=== PATIENT | male | born 1965 | race Caucasian/White ===

== ENCOUNTER 2023-10-01 07:09 | Day surgery (SDC) | payer OTHER, SELFPAY ==
[2023-09-16 10:20] VITALS: BMI 37.7
[2023-09-16 10:27] LABS: % Basophils 0.4 % (0-2); % Eosinophils 0.5 % (0-6); % Immature Granulocytes 0.2 % (0-0.5); % Lymphocytes 24.8 % (20.5-51.1); % Monocytes 7.8 % (1.7-9.3); % Neutrophils 66.3 % (42.2-75.2); Absolute Basophils 0.1 10^3/uL (0-0.2); Absolute Eosinophils 0.1 10^3/uL (0-0.7); Absolute Lymphocytes 3.2 10^3/uL (1.2-3.4); Absolute Neutrophils 8.5 10^3/uL (1.4-6.5); Hematocrit 45.9 % (39.0-52.0); Hemoglobin 16.2 g/dL (13.0-18.0); Mean Corp Hgb Conc. 35.3 g/dL (33.0-37.0); Mean Corpuscular Hgb 32.5 pg (27.0-31.0); Mean Platelet Volume 9.7 fL (7.4-10.4); Nucleated Red Blood Cells % 0 % (-); Platelet Count 190 10^3/uL (130-400); Red Blood Cell Count 4.99 10^6/uL (4.70-6.10); Red Cell Dist. Width 13.6 % (11.5-14.5); White Blood Cell Count 12.9 10^3/uL (4.8-10.8)
[2023-09-16 10:44] LABS: ALT (SGPT) 26 U/L (0-50); AST (SGOT) 23 U/L (17-59); Albumin 4.6 g/dl (3.5-5.0); Alkaline Phosphatase 58 U/L (38-126); Blood Urea Nitrogen 18 mg/dl (9-20); Calcium 9.4 mg/dl (8.4-10.2); Carbon Dioxide 28 mmol/L (22-30); Chloride 104 mmol/L (98-107); Estimated Creatinine Clearance > 125 ml/min; Glucose 103 mg/dl (70-99); Potassium 4.4 mmol/L (3.5-5.1); Sodium 138 mmol/L (135-145); Total Bilirubin 0.8 mg/dl (0.2-1.3); Total Protein 7.1 g/dl (6.3-8.2); eGFR > 60.00
[2023-10-01] VITALS (12 sets, daily range): BP systolic 79–155; BP diastolic 58–90
[2023-10-01] MEDS: LOW STRENGTH ASPIRIN 81 MG PO (08:00)
[2023-10-01 08:45] LABS: ACT-LR - POC 274 Seconds (116-155)
[2023-10-01 09:07] LABS: ACT-LR - POC 226 Seconds (116-155)
[2023-10-01] MEDS: NSS 1000 IV (09:24)
--- NOTE | 2023-10-01 10:56 | ITS.CL.CATH ---
Planning Lead - Catheterization
Cardiac Catheterization
Procedure Report:
CARDIAC CATHETERIZATION REPORT
Date of Procedure: 10/01/2023
Referring: Eddie Lynne MD
Indication: Mildly abnormal stress test with mild exertional dyspnea
HEMODYNAMIC DATA
AO: 156/88
LV: 156/17
LEFT VENTRICULOGRAPHY: Normal segmental wall motion with EF 62%
CORONARY ANGIOGRAPHY
Dominance: Right
Left Main: Normal
LAD: Focal 60-70% proximal LAD stenosis with 60% mid LAD stenosis distal to the takeoff of the very large bifurcating D1. The remainder of the LAD system has minimal luminal disease
Circumflex: There is a medium sized ramus intermedius with 30% proximal stenosis. The circumflex gives rise to a small high rising OM1, a large OM 2, and terminates with a medium sized bifurcating OM 3. There are tandem 70% and 50% lesions in the
circumflex just proximal to the bifurcating terminal OM 3.
RCA: Large dominant diffusely ectatic vessel with 60% proximal stenosis and otherwise mild luminal irregularities
FloWire assessment: At the conclusion of the diagnostic study, we proceeded with FloWire assessment of the RCA, circumflex, and LAD disease. Heparin was used for anticoagulation. A 6 Nigerian JR4 guide was used for the right coronary artery and a 6
[place]ian EBU 3.75 guide used for the left coronary artery. The RCA was evaluated first. Then we advanced the flow wire into the OM 3 to evaluate the distal circumflex disease. Finally, the flow wire was advanced into the distal LAD to evaluate the
LAD disease. Results include the following:
RCA: iFR-1.0, 0.99, and 0.99. These are all consistent with nonflow-limiting disease
Left circumflex: iFR 0.95, 0.95, 0.95. These are all consistent with nonflow-limiting disease.
LAD: iFR 0.95, 0.95, 0.95. The wire was withdrawn back to the guide showing a value of 1.0 at the guide consistent with appropriate normalization. We then readvanced the wire into the large D1. iFR there was 1.0. This proves the proximal LAD
60-70% stenosis is not at all flow-limiting.
Closure Device: None-the procedure was performed via the right radial artery. The Dao's test was normal prior to the procedure.
Radiation (mGy): 600
DAP (cm2.Gy): 41.1
Fluoroscopy time: 7.8 minutes
CONCLUSIONS
1: Systemic hypertension
2: Normal left ventricular function with EF 62%
3. Triple-vessel CAD as described. Quite surprisingly, the RCA, circumflex, and LAD disease are nonflow limiting.
4. Recommend very aggressive risk factor modification efforts. I explained to Manuel and his that continued smoking will result in premature almost certainly due to cardiovascular disease. His resting heart rate is in the low 50s and we
therefore will not add beta-piyush to his current regimen. We will give him sublingual nitroglycerin in case he ever develops anginal symptoms.
Copy to: Eddie Lynne MD, David Gaffney MD
Jaziel Verduzco MD, [facility], [facility]
== END 2023-10-01 12:34 | disposition home or self-care (01) ==
LOC: CATH 07:09
PROVIDERS: ATTENDING PHYSICIAN Internal Medicine Cardiovascular Disease; FAMILY PHYSICIAN Internal Medicine; OTHER PHYSICIAN Internal Medicine Cardiovascular Disease
DX: I25.10 Atherosclerotic heart disease of native coronary artery without angina pectoris (principal); I10 Essential (primary) hypertension; F17.210 Nicotine dependence, cigarettes, uncomplicated; R94.39 Abnormal result of other cardiovascular function study; R06.00 Dyspnea, unspecified; E78.5 Hyperlipidemia, unspecified; I45.10 Unspecified right bundle-branch block; J43.9 Emphysema, unspecified; R91.1 Solitary pulmonary nodule; K21.9 Gastro-esophageal reflux disease without esophagitis; Z86.010 Personal history of colon polyps; K57.90 Diverticulosis of intestine, part unspecified, without perforation or abscess without bleeding; K76.0 Fatty (change of) liver, not elsewhere classified; M54.30 Sciatica, unspecified side; E66.9 Obesity, unspecified; Z68.37 Body mass index [BMI] 37.0-37.9, adult; D72.829 Elevated white blood cell count, unspecified; Z79.82 Long term (current) use of aspirin
CPT/HCPCS: 36415; 80053; 85025; 93005; 93458; 93571; 93572; C1769; C1894; Q9967

== ENCOUNTER 2024-05-18 10:49 | Emergency (ER) | payer OTHER, SELFPAY ==
[2024-05-18] VITALS (9 sets, daily range): BP systolic 118–169; BP diastolic 67–96; PULSE 52–68; BMI 35.4
--- NOTE | 2024-05-18 11:43 | ED.GENMED ---
History of Present Illness
General
Chief Complaint: Fainting/Passed Out
Source: patient and spouse
Exam Limitations: none
Time Seen by Provider: 05/18/24 11:22
Nursing documentation reviewed up to this point in time: agreed with
History of Present Illness
History of Present Illness:
58-year-old male with history of HTN, HLD, cholecystectomy presents stating after going out to dinner last night, at 8 PM, he got out of the car, stood and felt like he was going to faint, dropped to his knees then fell over onto the ground with a
'few seconds' loss of consciousness. He denies any injury from the fall. He is not anticoagulated. He sat there and his gave him some water he got up and walked into the house. His blood pressure at that time was 90 systolic when he usually
has normal to high blood pressure. He denies headache or any pain prior to the fall. He denies nausea or vomiting.
This morning at 8:30 AM he noted blood in the toilet and on the toilet paper after wiping. He denies feeling lightheaded or dizzy now. He denies chest pain or trouble breathing. He denies abdominal pain.
Past History
Past History
ED Past Medical History: HTN and Hypercholesterolemia
ED Past Surgical History: Cholecystectomy
Social History
Tobacco: Non-smoker
Alcohol: Occasional
Personal:
Living: with family
Employment: Employed
Review of Systems
Review of Systems
Allergies reviewed?: Yes
All Other Systems: ROS reviewed and negative except as documented in HPI and ROS
Constitutional: Denies fever or fatigue
Respiratory: Denies trouble breathing
Cardiac: Reports syncope; Denies chest pain, diaphoresis or palpitations
ABD/GI: Reports bloody stools; Denies abdominal pain, nausea, vomiting, diarrhea or anorexia
: Denies dysuria, frequency or difficulty voiding
Musculoskeletal: Reports no symptoms
Skin: Reports no symptoms
Neurological: Reports no symptoms
Phy Exam
Physical Exam
Physical Exam:
GENERAL: No acute distress. A&Ox3.
CONSTITUTIONAL: Afebrile.
EYES: clear, conjunctivae normal
ENMT: moist mucus membranes, Pharynx nl
RESPIRATORY: Regular respirations, nonlabored, lungs clear.
CARDIOVASCULAR: Regular rate and rhythm, no murmurs, no rubs.
GI: Soft, rotund,nontender, normal BS
Rectal: pink mucus, heme positive
MUSCULOSKELETAL: Moves with ease. Well perfused.
SKIN: Warm, dry, pink
PSYCH: Normal mood and affect. Well kept, interactive and appropriate
NEUROLOGIC: Awake, alert and oriented. No focal neurological deficits
Course
Orders/Labs/Results
Orders:
Orders
05/18/24 10:52
ECG [Electrocardiogram (*1)] Urgent
Reason for Study: Syncope
EKG- Treatment ONCE
05/18/24 11:23
IV Insert/Care/Rem.- Treatment PRN
05/18/24 11:40
Orthostatic VS- Treatment ONCE
05/18/24 12:08
ABO2 Urgent
Before the Call Wristband Number:
Associate notified that ABO2 has been ordered: [id number]
Date: 05/18/24
Time: 12:51
Tufting Machine Fixer ID: [id number]
Basic Metabolic Panel Urgent
Complete Blood Count/With Diff Urgent
Lipase Urgent
05/18/24 13:08
Type+Screen Urgent
PalindromXK Wristband Number:
CMP [Comprehensive Metabolic Panel] Urgent
Protime/PTT Urgent
Is patient on Coumadin/Warfarin: Unknown
Comment: PREVIOUS CLOTTED
05/18/24 13:32
CT Abd/Pel (IV only)-DH only Urgent
Comment:
Reason For Exam: syncope, bloody stool
05/18/24 13:56
Hydrocortisone Sod Succinate [Solu-Cortef] 200 mg IV NOW STA
05/18/24 13:57
Diphenhydramine [Benadryl] 50 mg IV NOW STA
Abnormal Lab Results
05/18/24
12:08
WBC 11.3 H 10^3/uL
(4.8-10.8)
MCH 31.4 H pg
(27.0-31.0)
Plt Count 117 L 10^3/uL
(130-400)
MPV 11.4 H fL
(7.4-10.4)
Absolute Neuts (auto) 6.9 H 10^3/uL
(1.4-6.5)
Absolute Monos (auto) 1.0 H 10^3/uL
(0.1-0.6)
05/18/24 12:08
05/18/24 13:08
Vital Signs
Initial and Last Documented VS:
Initial Vital Signs
Temp Pulse Resp BP Pulse Ox
98.0 F 60 16 169/96 98
05/18/24 11:12 05/18/24 11:12 05/18/24 11:12 05/18/24 11:12 05/18/24 11:12
Last Documented Vital Signs
Temp Pulse Resp BP Pulse Ox
98.0 F 50 20 147/86 98
05/18/24 11:12 05/18/24 15:15 05/18/24 15:15 05/18/24 16:26 05/18/24 16:26
MDM/Problems Addressed
Differential Diagnosis Includes:
GI bleed, hemorrhoid, fissure, bleeding diverticula, diverticulitis, colitis, vasovagal episode
MDM/Problems Addressed:
58-year-old male with history of HTN, HLD, cholecystectomy, not anticoagulated, presents stating after going out to dinner last night, at 8 PM, he got out of the car, stood and felt like he was going to faint, dropped to his knees then fell over
onto the ground with a 'few seconds' loss of consciousness. He denies any injury from the fall. He is not anticoagulated. He sat there and his gave him some water he got up and walked into the house. His blood pressure at that time was 90
systolic when he usually has normal to high blood pressure. He denies headache or any pain prior to the fall. He denies nausea or vomiting.
This morning at 8:30 AM he noted blood in the toilet and on the toilet paper after wiping. He denies feeling lightheaded or dizzy now. He denies chest pain or trouble breathing. He denies abdominal pain.
Afebrile, NAD.
EKG Sinus bradycardia rate 54, no change
BP 141/71 by this examiner.
1:00 PM:
CBC, no clinically significant abnormality
CMP:normal
Lipase normal
4:00 p.m.
No further rectal bleeding
Pt feels well
Orthostatics negative
Plan: Discharge, return instructions reviewed.
He is comfortable going home.
CT abd/pelvis w IV contrast: Radiology report read: IMPRESSION:
1. Moderate sigmoid diverticulosis, without evidence of diverticulitis. No definite contrast extravasation to suggest active arterial hemorrhage at the time of imaging.
2. Small lung nodules at each lung base, likely benign. As per Fleischner Society recommendations, no further CT follow-up is required unless the patient is high risk for lung carcinoma, in which case a follow-up chest CT should be considered in
approximately 12 months.
Results reviewed with patient. Copy of CT report given.
Pt remains stable, no further bleeding, labs normal, VSS
Most likely vasovagal episode
Return instruction discussed.
05/19/24
F/U call to pt: States he is feeling well, no further bleeding, no further fainting episodes and his blood pressure is slightly higher than normal with is his baseline. He states he has f/u appt wit his PCP.
*EKG
EKG Intrepretation Date: 05/18/24
Interpretation: abnormal
Comparison EKG: no changes
Heart Rate: 54
Rate: bradycardiac
Rhythm: sinus
[place]: normal axis
Interval: normal interval
QRS Pattern: normal QRS
Ischemia: no ischemia
*Critical Care Note
Total Time (30-74mins, 75-104mins- exclusive of procedures): Not Applicable
ED Attending Note
-
Portions of this chart may have been created with voice recognition software.� Occasional wrong word or��sound alike� substitutions may have occurred due to the inherent limitations of voice recognition software.
Discharge Plan
Departure
Patient Disposition: Home (Routine Discharge)
Date of Disposition: 05/18/24
Time of Disposition: 16:24
Patient with high blood pressure during this ER visit?: No
Condition: Good
Discharge Problem:
History of rectal bleeding, Episode of syncope
Instructions: Syncope (Fainting) (DC), Bloody Stools, Adult ED
Prescriptions:
No Action
amlodipine 5 mg Tablet
5 mg PO QPM
aspirin 81 mg Tablet,Delayed Release (Dr/Ec)
81 mg PO QPM
pantoprazole [Protonix] 40 mg Tablet,Delayed Release (Dr/Ec)
40 mg PO DAILY
valsartan 320 mg Tablet
320 mg PO DAILY
rosuvastatin [Crestor] 20 mg Tablet
20 mg PO DAILY
Referrals:
David Gaffney MD [Family Provider] - Call in 1-3 days for appt
Activity Restrictions/Additional Instructions:
As we discussed, your workup here today shows nothing worrisome.
Return here immediately if you have another fainting episode, you have increasing rectal bleeding, abdominal pain or feeling sicker in any way
Call your primary doctor make an appointment for a recheck sometime within the next week.
Interventions
Interventions:
*Risk Screen - Suicide Last Done: 05/18/24 11:12
*General Assessment Last Done: 05/18/24 11:53
*Neglect/Abuse Screening Last Done: 05/18/24 11:12
ED- Fall Risk Assessment Last Done: 05/18/24 11:53
*ED COVID-19 Vaccine History Last Done: 05/18/24 11:53
*Nursing Disposition Last Done: 05/18/24 16:47
ED- Cardiac Assessment Last Done: 05/18/24 11:53
ED- Neurological Assessment Last Done: 05/18/24 11:53
Discharge Date and Time
Discharge Date/Time: 05/18/24 16:47
Print Language: Nicaraguan
[2024-05-18 12:59] LABS: Blood Urea Nitrogen 16 mg/dl (9-20); Calcium 9.5 mg/dl (8.4-10.2); Carbon Dioxide 25 mmol/L (22-30); Chloride 103 mmol/L (98-107); Estimated Creatinine Clearance > 125 ml/min; Glucose 92 mg/dl (70-99); Lipase 32 U/L (23-300); Sodium 139 mmol/L (135-145); eGFR > 60.00
[2024-05-18 13:24] LABS: % Basophils 0.3 % (0-2); % Eosinophils 0.6 % (0-6); % Immature Granulocytes 0.3 % (0-0.5); % Lymphocytes 28.8 % (20.5-51.1); % Monocytes 8.8 % (1.7-9.3); % Neutrophils 61.2 % (42.2-75.2); Absolute Eosinophils 0.1 10^3/uL (0-0.7); Absolute Lymphocytes 3.3 10^3/uL (1.2-3.4); Absolute Neutrophils 6.9 10^3/uL (1.4-6.5); Hematocrit 44.7 % (39.0-52.0); Hemoglobin 15.5 g/dL (13.0-18.0); Mean Corp Hgb Conc. 34.7 g/dL (33.0-37.0); Mean Corpuscular Hgb 31.4 pg (27.0-31.0); Mean Corpuscular Volume 90.7 fL (80.0-94.0); Mean Platelet Volume 11.4 fL (7.4-10.4); Nucleated Red Blood Cells % 0 % (-); Platelet Count 117 10^3/uL (130-400); Red Blood Cell Count 4.93 10^6/uL (4.70-6.10); Red Cell Dist. Width 13.3 % (11.5-14.5); White Blood Cell Count 11.3 10^3/uL (4.8-10.8)
[2024-05-18 13:28] LABS: APTT 29.3 Sec (23.4-35.0); INR 1.03; PT 13.3 Sec (11.4-14.6)
[2024-05-18 13:33] LABS: ALT (SGPT) 30 U/L (0-50); AST (SGOT) 24 U/L (17-59); Albumin 4.3 g/dl (3.5-5.0); Alkaline Phosphatase 43 U/L (38-126); Blood Urea Nitrogen 15 mg/dl (9-20); Calcium 9.2 mg/dl (8.4-10.2); Carbon Dioxide 29 mmol/L (22-30); Chloride 103 mmol/L (98-107); Estimated Creatinine Clearance 117 ml/min; Glucose 93 mg/dl (70-99); Potassium 4.1 mmol/L (3.5-5.1); Sodium 142 mmol/L (135-145); Total Bilirubin 0.6 mg/dl (0.2-1.3); Total Protein 6.5 g/dl (6.3-8.2); eGFR > 60.00
[2024-05-18] MEDS: BENADRYL 50 MG IV (14:09)
[2024-05-18] MEDS: SOLU-CORTEF 200 MG IV (14:10)
== END 2024-05-18 16:47 | disposition home or self-care (01) ==
LOC: EMR 10:49
PROVIDERS: Registered Nurse; EMERGENCY PHYSICIAN Emergency Medicine; FAMILY PHYSICIAN Internal Medicine
DX: R55 Syncope and collapse (principal); K62.5 Hemorrhage of anus and rectum; I10 Essential (primary) hypertension; E78.00 Pure hypercholesterolemia, unspecified
CPT/HCPCS: 99284; 96374; 96375; 74177; 80048; 80053; 83690; 85025; 85610; 85730; 86850; 86900; 86901; 93005; Q9967

== ENCOUNTER 2025-04-13 06:26 | Day surgery (SDC) | payer OTHER, SELFPAY ==
[2025-03-30 13:39] VITALS: BMI 37.2
[2025-03-30 14:12] LABS: Hematocrit 47.1 % (39.0-52.0); Hemoglobin 16.1 g/dL (13.0-18.0); Mean Corp Hgb Conc. 34.2 g/dL (33.0-37.0); Mean Corpuscular Volume 92.9 fL (80.0-94.0); Nucleated Red Blood Cells % 0 % (-); Platelet Count 165 10^3/uL (130-400); Red Cell Dist. Width 13.2 % (11.5-14.5)
--- NOTE | 2025-03-30 14:24 | HPS.HSE ---
Family Physician
-
Family Physician: David Gaffney
Chief Complaint
-
Coronary artery disease. Carotid stenosis. Dyspnea on exertion.
History of Present Illness
The patient is 59 year old male presenting today for multivessel coronary artery disease. He underwent a left-sided cardiac catheterization in September 2023 confirming this diagnosis. Surprisingly, his RCA, circumflex, and LAD disease were
noted to be nonflow limiting. At that time, aggressive risk factor modification efforts were advised. He was advised to continue Aspirin daily. Beta-piyush therapy was avoided due to bradycardia at baseline. As of recently, the patient did
experience significant exertional dyspnea when attempting to climb up a hill while vacationing in [place]. The patient reports he got winded and needed to rest several minutes to catch his breath. His past medical history is notable for bilateral
carotid artery disease, hypertension, and truncal obesity. Unfortunately, despite multiple advisements to quit, he still smokes approximately 5-6 cigarettes a day. He has been smoking tobacco for the last 36 years. Given his current exertional
dyspnea and significant cardiac medical history, it it recommended he undergo a left cardiac catheterization to assess for progressive coronary artery disease. He denies any current complaints today such as chest pain, shortness of breath at rest,
nausea, vomiting, diarrhea, lightheadedness, dizziness, cough, sore throat, or fever.
Medical History
Past Medical History
Past Medical History: Reports Other
Additional Past Medical History:
1. Coronary artery disease, multivessel.
2. Bilateral carotid artery stenosis, right worse than left.
3. Dyspnea on exertion.
4. Hypertension.
5. Dyslipidemia.
6. Sinus bradycardia.
7. Incomplete right bundle branch block.
8. Syncope, likely vasovagal, 05/2024.
9. Emphysema and small pulmonary nodules on chest CT 04/2023.
10. Questionable obstructive sleep apnea.
11. GERD.
12. Colon polyps.
13. Diverticulosis.
14. Fatty liver disease.
15. Sciatica.
16. Obesity, BMI 37.2.
17. Chronic mild leukocytosis in the setting of tobacco abuse.
18. Current tobacco abuse.
Past Surgical History: Reports Other
Additional Past Surgical History:
1. Left cardiac catheterization.
2. Cholecystectomy.
3. Salivary gland tumor excision (benign).
4. Colonoscopy.
5. Endoscopy.
Social History
Tobacco: Smoker (He is a current 5-6 cigarette per day smoker who has been smoking for the past 36 years. He reportedly is attempting to cut down on his tobacco use.)
Alcohol: Other (Social use reported. )
Personal:
Living: Other (The patient lives in a two-story townhouse with his .)
Family History
Family History: Not pertinent
Allergies / Home Medications
Allergy/Medication List:
MEDICATIONS:
1. Amlodipine 5 mg p.o. every evening.
2. Aspirin 81 mg p.o. every evening.
3. Rosuvastatin 20 mg p.o. daily.
4. Pantoprazole 40 mg p.o. daily.
5. Valsartan 320 mg p.o. daily.
ALLERGIES: Iodine.
Review of Systems
-
A 12 point ROS was completed and negative except as noted: Yes
Physical Exam
Vital Signs
Blood pressure 160/96. Heart rate 56. Respirations 18. Pulse ox 99% on room air.
Height 5 feet, 10 inches. Weight 117.5 kg. BMI 37.2.
Physical Exam
General: Well Developed, Well Nourished and No Apparent Distress
HEENT: NormoCephalic, Moist mucous membranes, Atraumatic and PERRLA
Respiratory: Clear
Cardiac: Bradycardia
GI: Soft, Non Tender, Non Distended and Other (Obese. )
Musculoskeletal: No Edema and Normal Gait & Station
Skin: Warm and Dry
Neuro: AO x 3 and Nonfocal/grossly intact
Laboratory Results
-
03/30/25 13:59
DIAGNOSTIC STUDIES as of 03/30/2025: Sodium 140. Potassium 4.8. BUN 15. Creatinine 0.9. Glucose 92. Calcium 9.4. AST 23. ALT 25. Albumin 4.8.
EKG 03/30/2025: Sinus bradycardia. Left axis deviation. Incomplete right bundle branch block. Nonspecific T wave abnormality. Compared to the prior EKG of 05/18/2024, there is no significant change.
Left cardiac catheterization 10/01/2023: Systemic hypertension. Normal left ventricular function with ejection fraction of 62%. Triple-vessel CAD. Quite surprisingly, the RCA, circumflex, and LAD disease are nonflow limiting. Recommend very
aggressive risk factor modification efforts.
Echocardiogram 08/08/2023: Normal biventricular systolic function. Mild right ventricular enlargement. No clinically significant valvular pathology.
Impression/Plan
-
IMPRESSION/PLAN:
1. Coronary artery disease, bilateral carotid artery stenosis, and dyspnea on exertion: The patient is in need of a left cardiac catheterization with Dr. Victor Hugo Kumar on 04/13/2025. The benefits and risks of the procedure have been explained to
the patient. The patient understands these risks and wishes to proceed. He is aware to continue his baby Aspirin daily up to and including the morning of his procedure.
[2025-03-30 14:49] LABS: ALT (SGPT) 25 U/L (0-50); AST (SGOT) 23 U/L (17-59); Albumin 4.8 g/dl (3.5-5.0); Alkaline Phosphatase 50 U/L (38-126); Blood Urea Nitrogen 15 mg/dl (9-20); Calcium 9.4 mg/dl (8.4-10.2); Carbon Dioxide 29 mmol/L (22-30); Chloride 104 mmol/L (98-107); Estimated Creatinine Clearance 115 ml/min; Glucose 92 mg/dl (70-99); Potassium 4.8 mmol/L (3.5-5.1); Sodium 140 mmol/L (135-145); Total Protein 7.2 g/dl (6.3-8.2); eGFR > 60.00
[2025-04-13] VITALS (20 sets, daily range): BP systolic 139–167; BP diastolic 79–112; BMI 36.6
[2025-04-13 08:22] LABS: ACT-LR - POC 343 Seconds (116-155)
[2025-04-13 08:38] LABS: ACT-LR - POC 300 Seconds (116-155)
--- NOTE | 2025-04-13 10:42 | ITS.CL.PN ---
Motion And Time Study Teacher - Procedure Note
Procedure
Procedure Note:
CARDIAC CATHETERIZATION REPORT
Date of Procedure: 04/13/2025
Referring: Dr. Eddie Lynne MD
Indication: known triple vessel CAD, atypical angina
PROCEDURE(S)
1. left heart catheterization
2. coronary angiography
3. iFR RCA
4. iFR LCx
5. iFR LAD
6. IVUS LAD
7. Shockwave lithotripsy LAD
8. PCI with PAUL to LAD
ACCESS: 6F right radial artery (closure: radial band)
CATHETERS
1. 6F JR4
2. 6F JL3.5
3. 6F JR4 guide
4. 6F EBU3.75 guide
MODERATE SEDATION: 75 minutes of moderate sedation was utilized. An independent center medical specialist was present to assist with and help manage the patient's level of consciousness and physiologic status.
HEMODYNAMIC DATA
LV 150/5 (EDP 13) mmHg
AO 143/70 (mean 98) mmHg
CORONARY ANGIOGRAPHY
Dominance: Right
LM: Large with mild distal tapering.
LAD: Large vessel giving rise to a large branching D1. There is a long calcific 70% stenosis in the proximal LAD and a focal 80% stenosis in the mid LAD just after the D1 takeoff. There is no significant disease in the diagonal or distal LAD. The
stenosis in the mid LAD appears angiographically progressed from 2023 angiography.
LCx: Moderate caliber vessel giving rise to a small OM1, large OM2, and moderate caliber bifurcating OM3. There is a 50% stenosis in the mid body of the OM1 that is mildly progressed from 2023 angiography. There is moderate disease in the OM3.
RCA: Large ectatic vessel giving rise to a large RPDA and large RPL branch. There is a focal 70% stenosis in the proximal RCA that is stable from 2023 angiography
iFR of RCA
Heparin was given to achieve ACT>250. The RCA was engaged with a JR4 guide catheter. An Omni wire was flushed and zeroed outside the body and then advanced to the ostial RCA. The wire introducer was removed and the catheter flushed with saline,
after which pressure of the wire and guide were normalized. The wire was advanced to the mid RCA and iFR recorded at 0.96. On return to the ostial RCA, iFR appropriately normalized to ~1.0, confirming lack of wire drift.
iFR of OM1
The left main was engaged with an EBU3.75 guide catheter. The Omni wire was advanced to the left main. The wire introducer was removed and the catheter flushed with saline, after which pressure of the wire and guide were normalized. The wire was
advanced to the distal OM 2 and iFR recorded at 0.99. On return to the left main, iFR appropriately normalized to ~1.0, confirming lack of wire drift.
iFR of LAD
The wire was re-normalized in the left main and advanced to the distal LAD. iFR recorded at 0.86. iFR pullback was performed noting a focal pattern with contribution from both the mid and proximal lesions. On return to the left main, iFR
appropriately normalized to ~1.0, confirming lack of wire drift.
Shockwave lithotripsy and PCI with DESx2 to LAD with IVUS guidance
The decision was made to proceed with PCI to the proximal and mid LAD stenoses. A Runthrough wire was placed in the distal LAD. Initial lesion preparation was performed with a 2.0 mm semi-compliant balloon with full expansion followed by a 2.5 mm NC
balloon to 12 meir with full expansion. IVUS was performed demonstrating a 2.75 mm reference vessel diameter in the mid LAD and a 3.75 mm reference vessel diameter in the proximal LAD with long segment nearly concentric calcification of the proximal
LAD lesion. Stenting of the distal lesion was performed with a 2.75 x 15 mm [place] drug-eluting stent deployed at 16 meir with full expansion. Shockwave lithotripsy was performed in the proximal LAD with a 60 pulses of a 3.5 x 12 mm Shockwave
lithotripsy balloon delivered with full expansion at 6 meir. Stenting was then performed with a 3.5 x 15 mm [place] drug-eluting stent postdilated with a 3.75 mm NC balloon to 16 meir. There was suggestion on cranial angiography of possible
proximal stent edge disruption, however on caudal angiography the stent edge appeared normal and on repeat IVUS imaging with careful scrutiny of the stent edge there was no evidence of stent edge dissection or vessel disruption otherwise. The wire
and guide were removed and a TR band placed. The patient was loaded with 600 mg Plavix.
RADIATION: dose 1528 mGy; DAP 87 Gy*cm2; fluoroscopy time 22.3 min
CONCLUSIONS
1. Single vessel obstructive coronary artery disease with tandem stenoses in the proximal and mid-LAD, and iFR negative stenoses in the OM2 and RCA
2. Normal LV filling pressure and no aortic stenosis
3. Successful IVUS-guided PCI of the mid LAD with a 2.75x15 mm [place] PAUL deployed at 16 meir
4. Successful IVUS-guided PCI of the proximal LAD with Shockwave lithotripsy (60 pulses of 3.5 mm Shockwave balloon) followed by a 3.5x15 mm PAUL post-dilated to 16 meir with a 3.75 mm NC balloon
RECOMMENDATIONS
1. DAPT with Plavix and ASA for 6 months
2. Aggressive secondary prevention of CAD including strict smoking cessation
3. Cardiac rehab
Copy to: Dr. Eddie Lynne MD (pot fisher); Dr. David Gaffney MD (PCP)
Signed: Victor Hugo Kumar MD, PhD
[2025-04-13 11:11] LABS: ACT-LR - POC > 397 Seconds (116-155)
--- NOTE | 2025-04-13 14:04 | W.PN.UPDATE ---
Update Note
Progress Note Update
Pt seen post LAD PCI w/2 PAUL. Right radial cath site without ht/bleeding, non tender. OOB ambulating. Post EKG SB 50s, no acute changes. Pt understands importance of uninterrupted DAPT w/asa, plavix. Continue other meds as before. Cardiac rehab
consulted. Followup with Dr. Lynne as scheduled. Home today if cath site/tele remain stable.
== END 2025-04-13 15:03 | disposition home or self-care (01) ==
LOC: CATH 06:26
PROVIDERS: ATTENDING PHYSICIAN Student in an Organized Health Care Education/Training Program; FAMILY PHYSICIAN Internal Medicine; OTHER PHYSICIAN Internal Medicine Cardiovascular Disease
DX: I25.119 Atherosclerotic heart disease of native coronary artery with unspecified angina pectoris (principal); I65.23 Occlusion and stenosis of bilateral carotid arteries; I10 Essential (primary) hypertension; E78.5 Hyperlipidemia, unspecified; R00.1 Bradycardia, unspecified; I45.10 Unspecified right bundle-branch block; R55 Syncope and collapse; J43.9 Emphysema, unspecified; K21.9 Gastro-esophageal reflux disease without esophagitis; Z86.0100 Personal history of colon polyps, unspecified; K76.0 Fatty (change of) liver, not elsewhere classified; Z68.37 Body mass index [BMI] 37.0-37.9, adult; K57.90 Diverticulosis of intestine, part unspecified, without perforation or abscess without bleeding; M54.30 Sciatica, unspecified side; D72.829 Elevated white blood cell count, unspecified; Z95.5 Presence of coronary angioplasty implant and graft; Z90.49 Acquired absence of other specified parts of digestive tract; F17.210 Nicotine dependence, cigarettes, uncomplicated; Z79.899 Other long term (current) drug therapy; Z79.82 Long term (current) use of aspirin; I65.29 Occlusion and stenosis of unspecified carotid artery
CPT/HCPCS: 92972; 93799 ×3; 99152; 99153; 92978; C1761; 36415; 80053; 85025; 85347; 93005; 93458; C1725; C1753; C1769; C1874; C1894; C9600; Q9967